=== PATIENT | female | born 1985 | race Caucasian/White ===

== ENCOUNTER 2021-04-03 13:32 | Outpatient (CLI) | payer OTHER, SELFPAY ==
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
== END 2021-04-03 13:33 | disposition home or self-care (01) ==
PROVIDERS: PCP Internal Medicine; Visit Provider Internal Medicine
DX: M54.5 Low back pain (principal); G89.29 Other chronic pain; M51.34 Other intervertebral disc degeneration, thoracic region
CPT/HCPCS: 72114

== ENCOUNTER 2021-05-13 07:48 | Outpatient (CLI) | payer OTHER, SELFPAY ==
--- NOTE | 2021-05-23 15:27 | WPDHOMESLEEP ---
Sleep Study - Home Unattended Date of Study: 05/13/21 <Carmela Buenrostro DO - Last Filed: 05/23/21 15:54> Ordering Provider: Toni Asher MD <Carmela Buenrostro DO - Last Filed: 05/23/21 15:54> Interpreting Provider: Carmela Buenrostro DO <Carmela Buenrostro DO - Last Filed: 05/23/21 15:54> Home Sleep Study Type: Apnea Link Air <Carmela Buenrostro DO - Last Filed: 05/23/21 15:54> Height: 1.7 m <Carmela Buenrostro DO - Last Filed: 05/23/21 15:54> Weight: 122.47 kg <Carmela Buenrostro DO - Last Filed: 05/23/21 15:54> Body Mass Index: 42.3 <Carmela Buenrostro DO - Last Filed: 05/23/21 15:54> Neck Circumference (inches): 17 <Carmela Buenrostro DO - Last Filed: 05/23/21 15:54> [place]: 7 <Carmela Buenrostro DO - Last Filed: 05/23/21 15:54> Reason for Sleep Study The patient has hypersomnia as well as difficulty falling asleep but for the past 5 years. <Carmela Buenrostro DO - Last Filed: 05/23/21 15:54> Sleep History The patient is a 35-year-old female with hypersomnia, depression and headaches that had a home sleep test ordered by her doctor for evaluation of sleep apnea. The patient states that she does not awaken from sleep short of breath. She rarely wakes up with heartburn belching or cough. She rarely snores and has never had others complain about it. She never wakes up gasping for air throughout the night. She denies any breathing problems at night. She denies any heart palpitations. She often falls asleep during the day. She never falls asleep while driving. She denies sleep paralysis, cataplexy and hypnopompic/hypnagogic hallucinations. The patient denies having nightmares. She often feels sad, depressed and anxious. She rarely has muscular tension. She denies kicking throughout the night. She denies crawling and aching feelings in her legs as well as leg pain throughout the night. She frequently grind her teeth throughout the night and rarely has morning jaw pain. She really is bothered by pain throughout the day and is never awakened by pain throughout the night. She will often feel stiff in the morning when she wakes up with sore and achy muscles. The patient goes to bed at 3:24 a.m. on weekdays and 2:23 a.m. on the weekends. She sleeps for about 6-9 hours. She will wake up once or twice throughout the night to go to the bathroom. It takes her about 20-30 minutes to fall back asleep. She will wake up around 11:00 a.m. to noon on the weekdays and noon to 1:00 p.m. on the weekends. The patient currently lives with her parents. Her work shift is from 4:00 p.m. to 12:30 a.m. on Thursday through Thursday. She denies any caffeinated beverages prior to bedtime. She denies engaging in physical exercise before bedtime. She will read and watch television before going to sleep. She denies taking naps in the afternoon. She denies tobacco, alcohol and recreational drug use. She does drink about 3 caffeinated beverages per day. <Carmela Buenrostro DO - Last Filed: 05/23/21 15:54> [facility] Past Medical History Medical History: Medical History (Updated 05/24/21 @ 16:35 by Cherise Strong MD) Depression Hypersomnia Mixed hyperlipidemia Restless legs syndrome <Carmela Buenrostro DO - Last Filed: 05/23/21 15:54> Surgical History Surgical History: Surgical History Status post de Quervain's release surgery <Carmela Buenrostro DO - Last Filed: 05/23/21 15:54> Family History Family History: Family History Father Family history of diabetes mellitus in first degree relative Grandparent Diabetes mellitus Other Acute myocardial infarction <Carmela Buenrostro DO - Last Filed: 05/23/21 15:54> Social History Social History: Social History (Reviewed 05/23/21 @ 15:38 by Carmela Villegas
[2021-05-23 15:47] VITALS: BMI 42.3
== END 2021-05-14 15:09 | disposition home or self-care (01) ==
LOC: ANHCSM 07:54
PROVIDERS: PCP Internal Medicine; Visit Provider Internal Medicine
DX: G47.10 Hypersomnia, unspecified (principal); G47.9 Sleep disorder, unspecified
CPT/HCPCS: 95806

== ENCOUNTER 2023-04-10 15:57 | Outpatient (CLI) | payer OTHER, SELFPAY ==
--- NOTE | ~2023-04-10 | US_ITS ---
EXAMINATION: US pelvic complete w TV DATE: 04/10/2023 16:51 INDICATION: Abnormal uterine bleeding TECHNIQUE: Multiple transabdominal and endovaginal sonographic images of the pelvis were obtained. COMPARISON: None. FINDINGS: The uterus measures 8.0 x 3.9 x 5.5 cm. There are several heterogeneous masses within the fibroid, th e largest at the anterior uterus measuring 3.1 cm maximal diameter with a smaller 2.0 cm hypoechoic m ass in the posterior uterus likely representing uterine fibroids. 4 mm anechoic nabothian cyst at the cervix. The endometrial complex measures 3 mm in thickness. The right ovary is not visualized The le ft ovary measures 3.6 x 2.3 x 1.7 cm. 2.4 cm anechoic left ovarian cyst/follicle . Vascular flow iden tified in the left ovary on color Doppler. There is no free fluid in the pelvis. IMPRESSION: 1. Fibroid uterus with normal endometrial complex thickness of 3 mm. Reviewed, dictated and finalized at location A.
== END 2023-04-10 15:58 | disposition home or self-care (01) ==
PROVIDERS: PCP Family Medicine; Visit Provider Nurse Practitioner Obstetrics & Gynecology
DX: N93.9 Abnormal uterine and vaginal bleeding, unspecified (principal); D25.9 Leiomyoma of uterus, unspecified
CPT/HCPCS: 76830; 76856